=== PATIENT | female | born 1985 | race Two or more races ===

== ENCOUNTER → 2023-03-10 | Emergency (ER) | payer OTHER ==
[~2023-03-10] VITALS: Ht 162.6 cm; Wt 117.0 kg
== END | disposition home or self-care (01) ==
LOC: ER 12:40
DX: R10.31 Right lower quadrant pain (principal); R10.11 Right upper quadrant pain; R10.9 Unspecified abdominal pain; I10 Essential (primary) hypertension; Z91.041 Radiographic dye allergy status